=== PATIENT | male | born 1985 | race Caucasian/White ===

== ENCOUNTER 2019-04-12 13:23 | Emergency (ER) | payer SELFPAY ==
[~2019-04-12] VITALS: Ht 170.2 cm; Wt 125.2 kg
[2019-04-12 13:43] VITALS: BP 140/77
--- NOTE | 2019-04-12 14:00 | NUR ---
PT REPORTS COUGH/CONGESTION & N/V X 2 DAYS, DENIES FEVER/DIARRHEA. PT STATES HIS CHEST HURTS FROM COUGHING SO MUCH. O2 SAT 95% RA . SKIN IS PINK/WARM/DRY; AAOX4 WITH EVEN AND STEADY GAIT; LUNGS CLEAR BL; HR EVEN AND REGULAR; PT DENIES ANY FEVER, CP, SOB, AT THIS TIME; PATIENT STATES PAIN OF 6/10 AT THIS TIME; VSS; PATIENT POSITIONED FOR COMFORT; HOB ELEVATED; BEDRAILS UP X2; BED DOWN. ER MD MADE AWARE OF PT STATUS.
[2019-04-12] MEDS ORDERED: NACL 0.9% 1,000 ML IV ONE (14:45)
[2019-04-12] MEDS ORDERED: DICYCLOMINE 20 MG/2 ML VIAL IM ONE (14:45)
[2019-04-12] MEDS ORDERED: ONDANSETRON 4 MG/2 ML VIAL IVP ONE (14:45)
[2019-04-12 15:39] VITALS: BP 140/77
--- NOTE | 2019-04-13 08:36 | NUR ---
Late entry. Confirmed with RN that 0.9 NS IV completed at 1535
== END 2019-04-12 15:36 | disposition home or self-care (01) ==
LOC: MED 13:23
DX: A08.4 Viral intestinal infection, unspecified (principal); R05 Cough; R09.89 Other specified symptoms and signs involving the circulatory and respiratory systems; Z90.49 Acquired absence of other specified parts of digestive tract
CPT/HCPCS: 96372; 96374; 99283; J0500; J2405; J7030